=== PATIENT | male | born 1950 | race Caucasian/White ===

== ENCOUNTER → 2016-05-09 | Outpatient (CLI) | payer MEDICARE ==
[2016-05-09 18:35] LABS: HEMOGLOBIN 13.6 gm/dl (14.0-17.5); RED BLOOD COUNT 4.73 M/UL (4.20-5.50); WHITE BLOOD COUNT 5.4 K/UL (4.5-11.0)
[2016-05-09 19:01] LABS: BUN/CREATININE RATIO 20 (0-10)
== END ==
LOC: LAB 17:34
PROVIDERS: Nurse Practitioner Family
DX: Z12.5 Encounter for screening for malignant neoplasm of prostate (principal); E78.5 Hyperlipidemia, unspecified; I10 Essential (primary) hypertension; E11.9 Type 2 diabetes mellitus without complications; F41.9 Anxiety disorder, unspecified; D51.3 Other dietary vitamin B12 deficiency anemia; E53.8 Deficiency of other specified B group vitamins
CPT/HCPCS: 36415; 80053; 80061; 82043; 82570; 82607; 82746; 83690; 84439; 84443; 85025; G0103

== ENCOUNTER → 2016-07-30 | Outpatient (CLI) | payer MEDICARE | LOC: SLEEP-COR 09:22 | DX: G47.33 Obstructive sleep apnea (adult) (pediatric) (principal) | CPT/HCPCS: 95811 ==

== ENCOUNTER → 2020-04-21 | Outpatient (CLI) | payer MEDICARE | LOC: EMI 12:47 | DX: M25.551 Pain in right hip (principal); M25.552 Pain in left hip; M16.0 Bilateral primary osteoarthritis of hip | CPT/HCPCS: 73721 ==

== ENCOUNTER → 2020-09-16 | Outpatient (CLI) | payer MEDICARE | LOC: EXRD 08-31 13:00 → KOH-I 15:00 | DX: M48.50XA Collapsed vertebra, not elsewhere classified, site unspecified, initial encounter for fracture (principal); M25.559 Pain in unspecified hip; M85.80 Other specified disorders of bone density and structure, unspecified site | CPT/HCPCS: 77080 ==

== ENCOUNTER → 2021-05-24 | Outpatient (CLI) | payer MEDICARE | LOC: CT 05-21 08:00 → KOH-I 16:16 | DX: S00.83XA Contusion of other part of head, initial encounter (principal); G31.89 Other specified degenerative diseases of nervous system | CPT/HCPCS: 70450 ==

== ENCOUNTER → 2021-09-15 | Outpatient (CLI) | payer MEDICARE ==
[~2021-09-15] MED LIST: AMLODIPINE BESY10 MG PO; ARICEPT5 MG PO; ASPIRIN 325MG325 MG PO; CLONIDINE HCL0.1 M1 PO; DIAZEPAM10 MG PO; HYDRALAZINE HCL25 MG PO; HYDROCHLOROTHIA25 MG PO; INDERAL TAB 4040 MG PO; LISINOPRIL40 MG PO; MELATONIN10 MG PO; METFORMIN HCL500 MG PO; TIZANIDINE HCL2 MG PO; TRAMADOL HCL50 MG PO; TYLENOL 8 HOUR650 MG PO; VASCEPA1 GM PO; [UNRECOGNIZED DRUG - OTHER] PO
[2021-09-15 10:32] LABS: HEMOGLOBIN 12.5 gm/dl (14.0-17.5); RED BLOOD COUNT 4.08 M/UL (4.20-5.50); WHITE BLOOD COUNT 5.2 K/UL (4.5-11.0)
[2021-09-15 11:00] LABS: BUN/CREATININE RATIO 23 (0-10)
== END ==
LOC: OPSV2 09-14 12:30 → EDSTATUS 09:00 → OPSV2 09:00
PROVIDERS: Orthopaedic Surgery
DX: Z01.818 Encounter for other preprocedural examination (principal); M16.12 Unilateral primary osteoarthritis, left hip; Z95.1 Presence of aortocoronary bypass graft
CPT/HCPCS: 71046; 80048; 83036; 85025

== ENCOUNTER 2021-09-30 08:39 | Day surgery (SDC) | payer MEDICARE ==
[~2021-09-30] VITALS: Ht 180.3 cm; Wt 111.6 kg
[2021-09-30 09:44] LABS: BUN/CREATININE RATIO 15 (0-10)
[2021-09-30] MEDS ORDERED: ENDOCET 7.5-321 EACH PO (13:03)
[2021-09-30] MEDS ORDERED: ZOFRAN 4 MG TAB4 MG PO (13:03)
[2021-09-30] MEDS ORDERED: ELIQUIS2.5 MG PO (13:03)
[2021-09-30] MEDS ORDERED: CYCLOBENZAPRINE10 MG PO (13:03)
[2021-09-30] MEDS ORDERED: ZOLPIDEM TARTRA10 MG PO (18:00)
[2021-09-30] MEDS ORDERED: FLOMAX 0.4 MG0.4 MG PO (18:02)
[2021-10-01 05:04] LABS: RED BLOOD COUNT 3.23 M/UL (4.20-5.50); WHITE BLOOD COUNT 9.7 K/UL (4.5-11.0)
[2021-10-01 05:21] LABS: BUN/CREATININE RATIO 24 (0-10)
[2021-10-02 04:54] LABS: HEMOGLOBIN 9.8 gm/dl (14.0-17.5); RED BLOOD COUNT 3.2 M/UL (4.20-5.50); WHITE BLOOD COUNT 7.4 K/UL (4.5-11.0)
[2021-10-02 05:24] LABS: BUN/CREATININE RATIO 25 (0-10)
--- NOTE | 2021-10-02 08:42 | NUR ---
PATIENT AND GIVEN DISCHARGE INSTUCTIONS AND EDUCATION ON NEW MEDICATION, EQUIPMENT USED AT HOME AND DVT PREVENTION. PATIENT VERBALIZES UNDERSTANDING AND DEMONSTRATES PROPER USE OF WALKER. PATIENT STATES HE IS READY FOR DISCHARGE AND THE VERBALIZES UNDERSTANDING OF INSTRUCTION WELL.
== END 2021-10-02 11:45 | disposition home or self-care (01) ==
LOC: OR 08:39 → CCU 16:55 → OR 10-02 11:45
PROVIDERS: Orthopaedic Surgery
PROC: 0SRB0JA Replacement of Left Hip Joint with Synthetic Substitute, Uncemented, Open Approach (ICD-10-PCS; principal; 2021-09-30 15:15)
DX: M16.0 Bilateral primary osteoarthritis of hip (principal); I25.10 Atherosclerotic heart disease of native coronary artery without angina pectoris; I10 Essential (primary) hypertension; E78.5 Hyperlipidemia, unspecified; G47.30 Sleep apnea, unspecified; E11.9 Type 2 diabetes mellitus without complications; D64.9 Anemia, unspecified; N40.0 Benign prostatic hyperplasia without lower urinary tract symptoms; H91.90 Unspecified hearing loss, unspecified ear; Z79.82 Long term (current) use of aspirin; Z79.84 Long term (current) use of oral hypoglycemic drugs; Z79.899 Other long term (current) drug therapy; Z88.8 Allergy status to other drugs, medicaments and biological substances; Z91.010 Allergy to peanuts; Z95.1 Presence of aortocoronary bypass graft; Z95.5 Presence of coronary angioplasty implant and graft
CPT/HCPCS: 36415; 73501; 73502; 76000; 80048; 82962; 85027; 86850; 86900; 86901; 97116; 97116-GP-CQ; 97161; 97166; 97530-GP-CQ; C1776; J0690; J1100; J1170; J1885; J2001; J2270; J2274; J2405; J2704; J2710; J3010; J3370; J7040; J7050